=== PATIENT | female | born 1950 | race Caucasian/White ===

== ENCOUNTER 2016-09-01 16:01 | Emergency (ER) | payer MEDICARE, OTHER ==
[~2016-09-01] VITALS: Ht 167.6 cm; Wt 68.0 kg
[~2016-09-01 16:01] MED LIST: [UNRECOGNIZED DRUG - REMARK]
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
[2016-09-01] MEDS ORDERED: IBUPROFEN 400 MG TABLET ONE (16:23)
[2016-09-01] MEDS ORDERED: IBUPROFEN 400 MG TABLET PO ONE (16:30)
--- NOTE | 2016-09-01 17:33 | NUR ---
Patient discharged to home in stable condition. Written and verbal after care instructions given. Patient verbalizes understanding of instruction. AMBULATORY WITH STEADY GAIT WITH WALKER
[2016-09-01 17:34] VITALS: BP 126/70
== END 2016-09-01 17:35 | disposition home or self-care (01) ==
LOC: ER 16:03
DX: M84.375A Stress fracture, left foot, initial encounter for fracture (principal); F10.129 Alcohol abuse with intoxication, unspecified; W10.8XXA Fall (on) (from) other stairs and steps, initial encounter; Y93.89 Activity, other specified; Y92.89 Other specified places as the place of occurrence of the external cause; Y99.8 Other external cause status
CPT/HCPCS: 73610; 73630; 99284; A4606; Z7610

== ENCOUNTER 2019-11-08 22:13 | Emergency (ER) | payer MEDICARE, OTHER ==
[~2019-11-08] VITALS: Ht 162.6 cm; Wt 72.6 kg
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
--- NOTE | 2019-11-09 02:23 | NUR ---
PT REMAINS ASLEEP, EASILY AROUSABLE, NO ACUTE DISTRESS NOTED, RESP EVEN AND UNLABORED. CALL LIGHT WITHIN REACH. WILL COTINUE TO MONITOR PT CLOSELY. 1:1 SITTER REMAINS AT BEDSIDE.
--- NOTE | 2019-11-09 04:16 | NUR ---
[place]ING [place] NO SIGNS OF DISTRESS NOTED. PT VITAL SIGNS STABLE. WILL CONT TO MONITOR PT.
--- NOTE | 2019-11-09 05:08 | NUR ---
PT AWAKE AND ALERT. REPORTED FEELING WELL. REPORTED WILLING TO LEAVE SINCE SHE HAS AN APPOINTMENT WITH HER PCP AT 10 AM.
--- NOTE | 2019-11-09 05:53 | NUR ---
PT IS MEDICALLY STABLE FOR D/C. AWAKE NAD ALERT, AMBULATORY USING WALKER . Patient discharged to home in stable condition. Written and verbal after care instructions given. Patient verbalizes understanding of instruction.
[2019-11-09 06:21] VITALS: BP 138/82
== END 2019-11-09 06:23 | disposition home or self-care (01) ==
LOC: ER 22:13
DX: F10.129 Alcohol abuse with intoxication, unspecified (principal); Y90.9 Presence of alcohol in blood, level not specified

== ENCOUNTER 2023-09-17 11:17 | Emergency (ER) | payer MEDICARE, OTHER ==
[~2023-09-17] VITALS: Ht 165.1 cm; Wt 72.6 kg
[2023-09-17] MEDS ORDERED: TDAP [DIPH/PERTUSSIS/TET] 0.5 ML VIAL IM ONE (11:43)
[2023-09-17] MEDS: TDAP [DIPH/PERTUSSIS/TET] 0.5 ML VIAL IM ONE (11:49)
[2023-09-17 13:26] VITALS: BP 134/81; TEMP 98.2; O2SAT 100
== END 2023-09-17 13:26 | disposition home or self-care (01) ==
LOC: ER 11:19
DX: S01.01XA Laceration without foreign body of scalp, initial encounter (principal); F10.129 Alcohol abuse with intoxication, unspecified; W01.0XXA Fall on same level from slipping, tripping and stumbling without subsequent striking against object, initial encounter; Y93.89 Activity, other specified; Y92.89 Other specified places as the place of occurrence of the external cause; Y99.8 Other external cause status; Y90.9 Presence of alcohol in blood, level not specified
CPT/HCPCS: 70450-TC; 90715